=== PATIENT | male | born 1990 | race Caucasian/White ===

== ENCOUNTER 2016-07-17 13:07 | Emergency (ER) | payer OTHER ==
[~2016-07-17] VITALS: Ht 167.6 cm; Wt 118.4 kg
[~2016-07-17 13:07] MED LIST: CLONAZEPAM0.5 MG PO; GEODON60 MG PO
[2016-07-17 13:57] LABS: HEMATOCRIT 43.3 % (38.0-50.0); MCH 29.7 PG (29.0-34.0); MCHC 35.6 G/DL (30.0-36.0); MCV 83.6 FL (86-99); MEAN PLAT.VOLUME 11.5 uM^3 (9.0-12.4); PLATELET COUNT 208 K/uL (156-360); RBC DIS.WIDTH-CV 13.4 % (11.8-14.6); RBC DIS.WIDTH-SD 40.7 % (39-53); RED BLOOD COUNT 5.18 M/uL (4.00-5.50); WHITE BLOOD COUNT 8.1 K/uL (4.1-10.2)
[2016-07-17 14:05] LABS: CHLORIDE 110 mEq/L (99-109); POTASSIUM 3.7 mEq/L (3.7-5.4); SODIUM 142 mEq/L (136-147)
[2016-07-17 14:07] LABS: GLUCOSE 99 mg/dL (70-99)
[2016-07-17 14:08] LABS: ANION GAP 10 MEQ/L (2-14)
[2016-07-17 14:11] LABS: GFR ESTIMATE (CALCULATED) > 59 mL/min/; UREA NITROGEN (BUN) 3 mg/dL (9-23)
[2016-07-17 15:55] VITALS: BP 137/90
== END 2016-07-17 15:56 | disposition home or self-care (01) ==
LOC: EME 13:07
PROVIDERS: Emergency Medicine
DX: R53.83 Other fatigue (principal); R06.02 Shortness of breath; R25.1 Tremor, unspecified; T43.1X5A Adverse effect of monoamine-oxidase-inhibitor antidepressants, initial encounter
CPT/HCPCS: 80048; 85027; 93005; 99281; 99284